=== PATIENT | female | born 1975 | race Hispanic/Latino ===

== ENCOUNTER 2018-09-13 17:32 | Emergency (ER) | payer OTHER ==
--- OUTSIDE RECORDS SUMMARY | 2018-09-13 17:33 | XMS REPORT ---
:1975 [facility] Errol Golden [address] [place] [id number] Care Team Providers Name Role Phone Unavailable Unavailable Unavailable Problems This patient has no known problems. Allergies, Adverse Reactions, Alerts This patient has no known allergies or adverse reactions. Medications This patient has no known medications.
[2018-09-13 18:09] LABS: Absolute Lymphocytes (CBC) 2.3 K/uL (0.7-4.9); Absolute Monocytes 0.5 K/uL (0.1-1.3); Absolute Neutrophil 4.8 K/uL (1.8-8.0); Basophils % 0.9 % (0-1.3); Eosinophils % 0.7 % (0-4.4); Hematocrit 36.4 % (36.0-45.0); Lymphocytes % 29.5 % (15.3-44.8); MPV 7.7 fL (7.6-11.3); Monocytes % 6.3 % (3.3-12.3); Protime INR 0.92; RBC Red Blood Cell Count 3.84 M/uL (3.86-4.86)
--- NOTE | 2018-09-13 18:21 | RAD REPORT ---
EXAM DESCRIPTION: Bird Single View09/13/2018 6:07 pm CLINICAL HISTORY: sob COMPARISON: none FINDINGS: The lungs appear clear of acute infiltrate. The heart is normal size IMPRESSION: No acute abnormalities displayed
[2018-09-13 18:24] LABS: ALT/SGPT 16 U/L (12-78); AST/SGOT 8 U/L (15-37); Albumin 3.5 g/dL (3.4-5.0); Alkaline Phosphatase 50 U/L (45-117); BUN Blood Urea Nitrogen 20 mg/dL (7-18); Bicarbonate 28 mmol/L (21-32); Bilirubin Direct < 0.1 mg/dL (0-0.2); Bilirubin Total 0.4 mg/dL (0.2-1.0); Glucose Level 95 mg/dL (74-106); Magnesium 1.9 mg/dL (1.8-2.4); NT PRO-BNP 50 pg/mL (<125); Potassium 3.5 mmol/L (3.5-5.1); Protein, Total 6.7 g/dL (6.4-8.2); Sodium Level 139 mmol/L (136-145); Troponin (Emerg Dept Use Only) < 0.02 ng/mL (0.0-0.045)
[2018-09-13 18:28] LABS: Barbiturates NEGATIVE (NEGATIVE); Benzodiazepines NEGATIVE (NEGATIVE); Cocaine NEGATIVE (NEGATIVE); METHAMPHETAM NEGATIVE (NEGATIVE); Methadone NEGATIVE (NEGATIVE); Opiates NEGATIVE (NEGATIVE); Phencyclidine NEGATIVE (NEGATIVE); THC Cannibis NEGATIVE (NEGATIVE)
--- NOTE | 2018-09-13 18:40 | RAD REPORT ---
EXAM DESCRIPTION: CT - Head Brain Wo Cont - 09/13/2018 6:23 pm CLINICAL HISTORY: Dizziness COMPARISON: None. TECHNIQUE: Computed axial tomography of the head was obtained. IV contrast was not requested. All CT scans are performed using dose optimization technique as appropriate and may include automated exposure control or mA/KV adjustment according to patient size. FINDINGS: An intracranial bleed is not seen . The ventricles are normal in caliber. No extra-axial fluid collection is noted. Fluid within the sinuses/ mastoids is not seen. IMPRESSION: No acute intracranial abnormality is seen. If patient's symptoms persist MRI of the bra in would be recommended.
[2018-09-13 19:28] LABS: Urine Blood NEGATIVE (NEG); Urine Glucose NEGATIVE (NEG); Urine Protein NEGATIVE (NEG); Urine pH 6.5 (5.0-7.0)
--- NOTE | 2018-09-13 20:21 | ER ---
Nurse's Notes 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 Transition of care: patient was not received from another setting of care. Onset of symptoms is unknown. Risk Assessment: Do you want to hurt yourself or someone else? Patient reports no desire to harm self or others. Initial Sepsis Screen: Does the patient meet any 2 criteria? No. Patient's initial sepsis screen is negative. Does the patient have a suspected source of infection? No. Patient's initial sepsis screen is negative. Care prior to arrival: IV initiated. 18 GA, in the right antecubital area, Glucose check: 103. 17:40 Method Of Arrival: EMS: [facility] bp 17:40 Acuity: SILVER 3 bp Triage Assessment: 17:42 General: Appears in no apparent distress. comfortable, Behavior is calm, cooperative, bp appropriate for age. Pain: Denies pain. 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 - Social history:: Smoking status: Patient/guardian denies using tobacco. - Ebola Screening: : Patient negative for fever greater than or equal to 101.5 degrees Fahrenheit, and additional compatible Ebola Virus Disease symptoms Patient denies exposure to infectious person Patient denies travel to an Ebola-affected area in the 21 days before illness onset No symptoms or risks identified at this time. Screenin:45 Abuse screen: Denies threats or abuse. Denies injuries from another. Nutritional bp screening: No deficits noted. Tuberculosis screening: No symptoms or risk factors identified. Fall Risk None identified. Assessment: 17:45 General: Appears in no apparent distress. comfortable, Behavior is calm, cooperative, bp appropriate for age. Pain: Denies pain. Neuro: Level of Consciousness is awake, alert, obeys commands, Oriented to person, place, time, situation, Appropriate for age. Cardiovascular: No deficits noted. Respiratory: Airway is patent Respiratory effort is even, unlabored, Respiratory pattern is regular, symmetrical. GI: No signs and/or symptoms were reported involving the gastrointestinal system. : No signs and/or symptoms were reported regarding the genitourinary system. EENT: No deficits noted. Derm: No deficits noted. Musculoskeletal: Circulation, motion, and sensation intact. Range of motion: intact in all extremities. 19:15 General: Appears in no apparent distress. comfortable, Behavior is calm, cooperative, tl2 appropriate for age. Pain: Denies pain. Neuro: Level of Consciousness is awake, alert, obeys commands, Oriented to person, place, time, situation. Neuro: Reports dizziness. Cardiovascular: No deficits noted. Respiratory: Airway is patent Respiratory effort is even, unlabored, Respiratory pattern is regular, symmetrical. GI: No signs and/or symptoms were reported involving the gastrointestinal system. : No signs and/or symptoms were reported regarding the genitourinary system. Derm: Skin is pink, warm \T\ dry. 20:16 Reassessment: Patient appears in no apparent distress at this time. Patient and/or tl2 family updated on plan of care and expected duration. Pain level reassessed. Patient is alert, oriented x 3, equal unlabored respirations, skin warm/dry/pink. PA spoke with pt about dispo, awaiting paperwork. 20:33 Reassessment: Patient appears in no apparent distress at this time. discharge rr5 instruction given and explained without complaints made. Vital Signs: 17:40 BP 118 / 73 Sitting; Pulse 64; Resp 16; Temp 98; Pulse Ox 100% ; Weight 65.77 kg; bp Height 4 ft. 10 in. (147.32 cm); 17:42 BP 133 / 79 Standing; Pulse 64; Resp 16; Pulse Ox 100% ; bp 19:30 BP 114 / 63; Pulse 67; Resp 18; Pulse Ox 100% on R/A; tl2 20:30 BP 114 / 63; Pulse 69; Resp 16; Pulse Ox 99% ; rr5 17:40 Body Mass Index 30.30 (65.77 kg, 147.32 cm) bp ED Course: 17:40 Patient arrived in ED. bp 17:41 Triage completed. bp 17:44 Arm band placed on. bp 17:45 Patient has correct armband on for positive identification. Placed in gown. Bed in low bp position. Call light in reach. Side rails up X2. 17:45 Maintain EMS IV. Dressing intact. Good blood return noted. Site clean \T\ dry. Gauge \T\ bp site: 18 GAUGE R AC. 17:[address] jg6 18:03 X-ray completed. Portable x-ray completed in exam room. Patient tolerated procedure ls3 well. 18:05 XRAY Chest (1 view) In Process Unspecified. EDMS 18:06 EKG done, by ultrasound technologist. dt2 18:09 Urine collected: clean catch specimen, cloudy, courtney colored. jb1 18:11 Urine Drug Screen Sent. jb1 18:14 Neftali Batista PA is PHCP. [facility] 18:14 Jose Man MD is Attending Physician. [facility] 18:16 Jose Ortiz, RN is Primary Nurse. bp 18:24 CT Head Brain wo Cont In Process Unspecified. EDMS 20:19 Chandrakant Aguilar MD is Referral Physician. jmm 20:34 No provider procedures requiring assistance completed. IV discontinued, intact, rr5 bleeding controlled, No redness/swelling at site. Pressure dressing applied. Administered Medications: No medications were administered Outcome: 20:20 Discharge ordered by . jmm 20:34 Discharged to home ambulatory. rr5 20:34 Condition: stable 20:34 Discharge instructions given to patient, Instructed on discharge instructions, follow up and referral plans. Demonstrated understanding of instructions, follow-up care. 20:35 Patient left the ED. rr5 Signatures: Dispatcher [employer] EDMS Luc eHrnández jb1 Neftali Batista PA PA jmm Knox, Taylor, RN RN tl2 Jose Ortiz, RN RN Malina Ornelas dt2 Awa Keane jg6 Azam Santacruz ls3 Wade Vyas, RN RN rr5
--- NOTE | 2018-09-13 20:21 | EDPHYS ---
Physician Documentation [facility] Name: Mariana Aquino Age: 42 yrs Sex: Female : 1975 Arrival Date: 09/13/2018 Time: 17:40 Bed 2 Private MD: ED Physician Jose Man HPI: 09/13 18:47 This 42 yrs old Female presents to ER via EMS with complaints of Dizziness. jmm 18:47 The patient has experienced near-syncope. Onset: The symptoms/episode began/occurred jmm acutely, at 16:30. Duration: The patient has had multiple episodes. This is a 42 year old female with no chronic medical conditions that presents to the ED with complaints of near syncope which occurred while at work. Patient states she became lightheaded and almost fainted. Patient states her hands became clammy. Patient denies chest pain, denies palpitations, denies shortness of breath. Denies sensation of dizziness, symptoms are not exacerbated by movement. Denies family history of sudden . . 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 - Social history:: Smoking status: Patient/guardian denies using tobacco. - Ebola Screening: : Patient negative for fever greater than or equal to 101.5 degrees Fahrenheit, and additional compatible Ebola Virus Disease symptoms Patient denies exposure to infectious person Patient denies travel to an Ebola-affected area in the 21 days before illness onset No symptoms or risks identified at this time. ROS: 18:47 Constitutional: Negative for fever, chills, and weight loss, Cardiovascular: Negative jmm for chest pain, palpitations, and edema, Respiratory: Negative for shortness of breath, cough, wheezing, and pleuritic chest pain. 18:47 Neuro: Positive for near syncope. 18:47 All other systems are negative. Exam: 18:47 Constitutional: This is a well developed, well nourished patient who is awake, alert, jmm and in no acute distress. Head/Face: atraumatic. Eyes: EOMI, no conjunctival erythema appreciated ENT: Moist Mucus Membranes Neck: Trachea midline, Supple Chest/axilla: Normal chest wall appearance and motion. Cardiovascular: Regular rate and rhythm. No edema appreciated Respiratory: Normal respirations, no respiratory distress appreciated Abdomen/GI: Non distended, soft Skin: General appearance color normal MS/ Extremity: Moves all extremities, no obvious deformities appreciated, no edema noted to the lower extremities 18:47 Neuro: Orientation: is normal, Mentation: is normal, Memory: is normal. 18:47 Psych: Behavior/mood is pleasant, cooperative. 18:49 Neuro: Cerebellar function: normal finger to nose testing, heel to sunshine testing is [facility] normal. Vital Signs: 17:40 BP 118 / 73 Sitting; Pulse 64; Resp 16; Temp 98; Pulse Ox 100% ; Weight 65.77 kg; bp Height 4 ft. 10 in. (147.32 cm); 17:42 BP 133 / 79 Standing; Pulse 64; Resp 16; Pulse Ox 100% ; bp 19:30 BP 114 / 63; Pulse 67; Resp 18; Pulse Ox 100% on R/A; tl2 20:30 BP 114 / 63; Pulse 69; Resp 16; Pulse Ox 99% ; rr5 17:40 Body Mass Index 30.30 (65.77 kg, 147.32 cm) bp MDM: 18:18 Patient medically screened. [facility] 20:19 Data reviewed: vital signs, nurses notes. Counseling: I had a detailed discussion with rigoberto the patient and/or guardian regarding: the historical points, exam findings, and any diagnostic results supporting the discharge/admit diagnosis, lab results, radiology results, the need for outpatient follow up, to return to the emergency department if symptoms worsen or persist or if there are any questions or concerns that arise at home. ED course: [place] syncope rules negative. Patient is advised to follow up with cardiology for further evaluation. Patient is otherwise given strict return precautions. . 09/13 17:45 Order name: Basic Metabolic Panel; Complete Time: 18:27 bp 09/13 17:45 Order name: CBC with Diff; Complete Time: 18:19 bp 09/13 17:45 Order name: LFT's; Complete Time: 18:27 bp 09/13 17:45 Order name: Magnesium; Complete Time: 18:27 bp 09/13 17:45 Order name: NT PRO-BNP; Complete Time: 18:27 bp 09/13 17:45 Order name: PT-INR; Complete Time: 18:19 bp 09/13 17:45 Order name: Troponin (emerg Dept Use Only); Complete Time: 18:27 bp 09/13 17:45 Order name: XRAY Chest (1 view); Complete Time: 18:27 bp 09/13 17:45 Order name: EKG; Complete Time: 17:46 bp 09/13 17:45 Order name: Cardiac monitoring; Complete Time: 17:47 bp 09/13 17:45 Order name: CT Head Brain wo Cont; Complete Time: 18:44 bp 09/13 17:45 Order name: Urine Drug Screen; Complete Time: 18:34 bp 09/13 18:12 Order name: Urine Dipstick--Ancillary (enter results); Complete Time: 19:33 em1 09/13 18:12 Order name: Urine --Ancillary (enter results); Complete Time: 19:33 em1 09/13 17:45 Order name: EKG - Nurse/Tech; Complete Time: 18:01 bp 09/13 17:45 Order name: IV Saline Lock; Complete Time: 17:47 bp 09/13 17:45 Order name: Labs collected and sent; Complete Time: 18:03 bp 09/13 17:45 Order name: O2 Per Protocol; Complete Time: 17:47 bp 09/13 17:45 Order name: O2 Sat Monitoring; Complete Time: 17:46 bp 09/13 17:45 Order name: Urine Dipstick-Ancillary (obtain specimen); Complete Time: 18:07 bp 09/13 17:45 Order name: Urine Test (obtain specimen); Complete Time: 18:07 bp 09/13 17:45 Order name: Orthostatic Blood Pressure; Complete Time: 17:46 bp Administered Medications: No medications were administered Disposition: 09/14 07:37 Co-signature as Attending Physician, Jose Man MD I agree with the assessment and kdr plan of care. Disposition: 09/13/18 20:20 Discharged to Home. Impression: Syncope and collapse. - Condition is Stable. - Discharge Instructions: Syncope. - Medication Reconciliation Form, Thank You Letter, Antibiotic Education, Prescription Opioid Use form. - Follow up: Chandrakant Aguilar MD; When: 1 - 2 days; Reason: Recheck today's complaints, Continuance of care, Re-evaluation by your physician. Signatures: Dispatcher [employer] EDJose Hernandez MD MD kdr Mickail, Joel, PA PA jmm Peltier, Brian, MILAN RN bp Wade Vyas, RN RN rr5 Corrections: (The following items were deleted from the chart) 09/13 20:35 20:20 09/13/2018 20:20 Discharged to Home. Impression: Syncope and collapse. Condition rr5 is Stable. Forms are Medication Reconciliation Form, Thank You Letter, Antibiotic Education, Prescription Opioid Use. Follow up: Chandrakant Aguilar; When: 1 - 2 days; Reason: Recheck today's complaints, Continuance of care, Re-evaluation by your physician. rigoberto
== END 2018-09-13 20:35 | disposition home or self-care (01) ==
LOC: ER 17:32
DX: R55 Syncope and collapse (principal)
CPT/HCPCS: 36415; 70450; 71045; 80048; 80076; 80307; 81003; 81025; 83735; 83880; 84484; 85025; 85610; 93005; 99284

== ENCOUNTER 2024-03-17 09:52 | Emergency (ER) | payer SELFPAY ==
[2024-03-17 10:55] LABS: Absolute Eosinophils 0.1 K/uL (0-0.5); Absolute Lymphocytes (CBC) 2.2 K/uL (0.7-4.9); Absolute Monocytes 0.6 K/uL (0.1-1.3); Absolute Neutrophil 2.7 K/uL (1.8-8.0); Basophils % 0.5 % (0-1.3); Hematocrit 36.5 % (36.0-45.0); Hemoglobin 11.6 g/dL (12.0-15.0); Lymphocytes % 39.4 % (15.3-44.8); MCH 26.2 pg (27.0-35.0); MCHC 31.8 g/dL (32.0-36.0); MCV 82.4 fL (80-100); MPV 7.1 fL (7.6-11.3); Monocytes % 10.3 % (3.3-12.3); Neutrophils % 48.8 % (41.7-73.7); Nucleated Red Blood Cells % 0.1 % (0-0); Platelets 263 thou/uL (152-406); RBC Red Blood Cell Count 4.42 M/uL (3.86-4.86); Red Cell Distribution Width 18.7 % (12.1-15.2)
[2024-03-17 10:56] LABS: Specific Gravity 1.017 (1.005-1.030)
[2024-03-17 10:59] LABS: Specific Gravity 1.018 (1.005-1.030); Sqamous Epithelial None Seen /HPF (None Seen); Urine Bacteria <20 /HPF (<20); Urine Bilirubin NEGATIVE (Negative); Urine Blood Trace (Negative); Urine Clarity Extremely Turbid (Clear); Urine Color Yellow (Yellow); Urine Culture Reflex Order NOT NEEDED; Urine Glucose NEGATIVE (Negative); Urine Ketones NEGATIVE (Negative); Urine Micro Reflex YN NO BILL MICROSCOPIC; Urine Nitrite NEGATIVE (Negative); Urine Protein NEGATIVE (Negative); Urine RBC <5 /HPF (None Seen); Urine Urobilinogen Normal (Normal); Urine WBC <5 /HPF (<5); Urine Yeast (Budding) Trace /HPF (None Seen); Urine pH 7.5 (5.0-7.0)
[2024-03-17 11:09] LABS: Albumin 3.1 g/dL (3.4-5.0); Albumin/Globulin Ratio 0.7 (1.1-1.8); Anion Gap 10.1 mEq/L (5.0-15.0); Bilirubin Total 0.3 mg/dL (0.2-1.0); Globulin 4.3 g/dL (2.3-3.5); Protein, Total 7.4 g/dL (6.4-8.2)
[2024-03-17 11:12] LABS: Potassium 4.1 mEq/L (3.5-5.1)
--- NOTE | 2024-03-17 11:50 | RAD REPORT ---
EXAM DESCRIPTION: CT - Abdomen Pelvis W Contrast - 03/17/2024 11:37 am CLINICAL HISTORY: right side abdomen pain COMPARISON: CT ABD PELVIS W CONTRAST dated 12/22/2008 TECHNIQUE: Thin cut axial CT imaging of the abdomen and pelvis was performed following intravenous a dministration of 100 mL Isovue 300. Multiplanar reformats were generated and reviewed. All CT scans are performed using dose optimization technique as appropriate and may include automated exposure control or mA/KV adjustment according to patient size. FINDINGS: No suspicious findings in the lung bases. The liver show subcentimeter hypoattenuating foci, well-circumscribed, may suggest small cysts, howev er are not well characterized. Adrenal glands, spleen, and pancreas show no suspicious findings. Gall bladder and biliary tree are also without suspicious finding. Left lower renal pole 3 mm nonobstructing calculus. Somewhat ill-defined focus of heterogeneous hypoe nhancement along the posterior right renal interpolar cortex, favored to represent focal pyelonephrit is, given some adjacent perinephric edema and fascial thickening. No hydronephrosis or suspicious yasmine al mass. No dilated bowel loops or bowel wall thickening. No free air, free fluid or inflammatory stranding. N o hernia, mass or bulky lymphadenopathy. Appendix is unremarkable. The urinary bladder is suboptimall y distended, without significant finding. No suspicious bony findings. IMPRESSION: Somewhat ill-defined focus of heterogeneous hypoenhancement along the right posterior re nal interpolar cortex, favored to represent focal pyelonephritis. Incidentally noted nonobstructing 3 mm left lower renal pole calculus. No evidence of obstruction.
--- NOTE | 2024-03-17 12:06 | EDPHYS ---
Physician Documentation [facility] Name: Mariana Aquino Age: 48 yrs Sex: Female : 1975 Arrival Date: 03/17/2024 Time: 09:52 Bed 8 Private MD: ELVIA Physician Neil Mcghee HPI: 03/17 10:25 This 48 yrs old Female presents to ER via Ambulatory with complaints of cp Abdominal Pain. 10:25 The patient presents with abdominal pain. cp 10:25 Onset: The symptoms/episode began/occurred 1 week(s) ago. cp 10:25 The symptoms radiate to Associated signs and symptoms: Pertinent negatives: blood in cp stools, chest pain, constipation, diarrhea, fever, shortness of breath, vomiting. The symptoms are described as waxing/waning. Historical: - Allergies: 10:12 No Known Allergies; ll1 - Immunization history:: Adult Immunizations up to date. - Infectious Disease History:: Denies. - Social history:: Smoking status: Patient denies any tobacco usage or history of. ROS: 10:30 Constitutional: Negative for body aches, chills, fever, poor PO intake, cp 10:30 Eyes: Negative for injury, pain, redness, and discharge, cp 10:30 ENT: Negative for drainage from ear(s), ear pain, sore throat, difficulty swallowing, difficulty handling secretions, 10:30 Cardiovascular: Negative for chest pain, palpitations, 10:30 Respiratory: Negative for cough, shortness of breath, wheezing, 10:30 Abdomen/GI: Positive for abdominal pain, nausea, Negative for vomiting, diarrhea, constipation, black/tarry stool, rectal bleeding, 10:30 Neuro: Negative for headache, weakness, 10:30 All other systems are negative, Exam: 10:35 Head/Face: Normocephalic, atraumatic. cp 10:35 Constitutional: The patient appears in no acute distress, alert, awake, non-toxic, well developed, well nourished, 10:35 Eyes: Periorbital structures: appear normal, Conjunctiva: normal, no exudate, no injection, Sclera: no appreciated abnormality, Lids and lashes: appear normal, bilaterally, 10:35 ENT: External ear(s): are unremarkable, Nose: is normal, Mouth: Lips: moist, Oral mucosa: moist, Posterior pharynx: Airway: no evidence of obstruction, patent, 10:35 Chest/axilla: Inspection: normal, 10:35 Cardiovascular: Rate: normal, Rhythm: regular, 10:35 Respiratory: the patient does not display signs of respiratory distress, Respirations: normal, no use of accessory muscles, no retractions, labored breathing, is not present, Breath sounds: are clear throughout, no decreased breath sounds, no stridor, no wheezing, 10:35 Abdomen/GI: Inspection: abdomen appears normal, Bowel sounds: active, all quadrants, Palpation: soft, in all quadrants, mild abdominal tenderness, in the right upper quadrant, rebound tenderness, is not appreciated, involuntary guarding, is not appreciated, 10:35 Back: pain, that is mild, of the mid back area, ROM is normal, 10:35 Skin: no rash present. 10:35 Neuro: Orientation: to person, place \T\ time. Mentation: is normal, Motor: moves all fours, strength is normal, Vital Signs: 10:12 BP 112 / 66; Pulse 60; Resp 16; Temp 97.1; Pulse Ox 100% ; Weight 58.97 kg; Height 4 ll1 ft. 10 in. ; Pain 5/10; 11:30 BP 118 / 78; Pulse 62; Resp 18; Pulse Ox 98% on R/A; ph 13:00 BP 122 / 72; Pulse 63; Resp 18; Temp 97.5; Pulse Ox 98% on R/A; ph 10:12 Body Mass Index 27.17 (58.97 kg, 147.32 cm) ll1 10:12 Pain Scale: Adult ll1 MDM: 10:15 Patient medically screened. cp 11:00 Differential diagnosis: appendicitis, cholecystitis, Cholelithiasis, non-specific abd cp pain, Pyelonephritis, Ureterolithiasis, urinary tract infection. 12:04 Data reviewed: vital signs, nurses notes, lab test result(s), radiologic studies, CT cp scan, and as a result, I will discharge patient. Independent interpretation of the following test(s) in the Emergency Department EKG: See my EKG interpretation above. Counseling: I had a detailed discussion with the patient and/or guardian regarding the historical points, exam findings, and any diagnostic results supporting the discharge/admit diagnosis, lab results, radiology results, the need for outpatient follow up, a family practitioner, to return to the emergency department if symptoms worsen or persist or if there are any questions or concerns that arise at home. 03/17 10:16 Order name: Urinalysis W/Microscopic; Complete Time: 11:28 03/17 11:28 Interpretation: Normal except: [facility] Extremely Turbid; UBLD Trace; UPH 7.5; BYST Trace. 03/17 10:16 Order name: Test, Urine; Complete Time: 11:28 03/17 10:28 Order name: CBC with Diff; Complete Time: 11:28 03/17 11:29 Interpretation: Normal except: HGB 11.6; MCH 26.2; MCHC 31.8; RDW 18.7; MPV 7.1. 03/17 10:28 Order name: CMP; Complete Time: 11:28 03/17 11:30 Interpretation: ALB 3.1; GLOB 4.3; A/G 0.7; Reviewed. 03/17 10:28 Order name: Lipase; Complete Time: 11:28 03/17 11:32 Interpretation: Reviewed. 03/17 10:28 Order name: CT Abd/Pelvis - IV Contrast Only; Complete Time: 11:51 03/17 11:52 Interpretation: Report reviewed. 03/17 10:28 Order name: IV Saline Lock; Complete Time: 11:36 03/17 10:28 Order name: Labs collected and sent; Complete Time: 11:36 cp Administered Medications: 12:53 Drug: NS 0.9% IV 1000 ml IV at 1 bolus Per protocol; 1000 mL bolus Route: IV; Rate: 1 ph bolus; Site: right antecubital; 14:00 Follow up: Response: No adverse reaction; IV Status: Completed infusion; IV Intake: ph 1000ml 12:54 Drug: Rocephin IV 1 grams IV at calculated rate once; Given slow IV push per pharmacy ph instructions Route: IV; Rate: calculated rate; Site: right antecubital; 13:45 Follow up: Response: No adverse reaction; IV Status: Completed infusion ph 13:02 Not Given (Patient Refused): [id number] mg IVP once; if test negative ph Disposition Summary: 03/17/24 12:05 Discharge Ordered Notes: Location: Home cp Problem: new cp Symptoms: have improved cp Condition: Stable cp Diagnosis - Pyelonephritis acute cp Followup: cp - With: Private Physician - When: 2 - 3 days - Reason: Recheck today's complaints Discharge Instructions: - Discharge Summary Sheet cp - Pyelonephritis, Adult cp Forms: - Medication Reconciliation Form cp - Antibiotic Education cp - Prescription Opioid Use cp - Patient Portal Instructions cp - Leadership Thank You Letter cp Prescriptions: - Zofran 4 mg Oral Tablet - take 1 tablet ORAL route every 12 hours As needed; 20 tablet; Refills: 0, cp Product Selection Permitted - cefpodoxime 200 mg Oral tablet - take 1 tablet ORAL route every 12 hours with food; 20 tablet; Refills: 0, cp Product Selection Permitted Addendum: 03/24/2024 15:38 Co-signature as Attending Physician, Neil Mcghee MD I agree with the assessment and c nino plan of care. Signatures: Dispatcher [employer] EDNE Neil Mcghee MD MD cha Hall, Patricia, RN RN Neil Ramires PA PA Felicitas Burleson RN RN ll1 Corrections: (The following items were deleted from the chart) 03/17 10:17 10:17 Urinalysis W/Microscopic+U.LAB.BRZ ordered. EDNE EDMS 10:17 10:17 Test, Urine+UC.LAB.BRZ ordered. EDMS EDMS 10:28 10:28 CBC+H.LAB.BRZ ordered. EDMS EDMS 10:28 10:28 COMPREHENSIVE METABOLIC PANEL+C.LAB.BRZ ordered. EDMS EDMS 10:28 10:28 LIPASE+C.LAB.BRZ ordered. EDMS EDMS 10:29 10:29 Abdomen Pelvis W Con+CT.RAD.BRZ ordered. EDMS EDMS 12:03/16 10:35 Constitutional: The patient appears in no acute distress, alert, awake, cp non-toxic, well developed, well nourished, cp 03/17 12:03/16 10:35 Head/Face: Normocephalic, atraumatic. cp cp 03/17 12:03/16 10:35 Eyes: Periorbital structures: appear normal, Conjunctiva: normal, no cp exudate, no injection, Sclera: no appreciated abnormality, Lids and lashes: appear normal, bilaterally, cp 03/17 12:03/16 10:35 ENT: External ear(s): are unremarkable, Nose: is normal, Mouth: Lips: cp moist, Oral mucosa: moist, Posterior pharynx: Airway: no evidence of obstruction, patent, cp 03/17 12:03/16 10:35 Chest/axilla: Inspection: normal, cp cp 03/17 12:03/16 10:35 Cardiovascular: Rate: normal, Rhythm: regular, cp cp 03/17 12:03/16 10:35 Respiratory: the patient does not display signs of respiratory distress, cp Respirations: normal, no use of accessory muscles, no retractions, labored breathing, is not present, Breath sounds: are clear throughout, no decreased breath sounds, no stridor, no wheezing, cp 03/17 12:03/16 10:35 Abdomen/GI: Inspection: abdomen appears normal, Bowel sounds: active, all cp quadrants, Palpation: soft, in all quadrants, mild abdominal tenderness, in the right upper quadrant, rebound tenderness, is not appreciated, involuntary guarding, is not appreciated, cp 03/17 12:03/16 10:35 Back: pain, that is mild, of the mid back area, ROM is normal, cp cp 03/17 12:03/16 10:35 Skin: no rash present. cp cp 03/17 12:03/16 10:35 Neuro: Orientation: to person, place \T\ time. Mentation: is normal, Motor: cp moves all fours, strength is normal, cp
--- NOTE | 2024-03-17 12:06 | ER ---
Nurse's Notes [facility] Name: Mariana Aquino Age: 48 yrs Sex: Female : 1975 Arrival Date: 03/17/2024 Time: 09:52 Bed 8 Private MD: Diagnosis: Pyelonephritis acute Presentation: 03/17 10:12 Chief complaint: Patient states: R sided abdominal pain for 1 week. Some nausea. ll1 Unknown fever. Coronavirus screen: Client denies travel out of the [place] in the last 14 days. fatigue, fever, nausea, Client presents with at least one sign or symptom that may indicate coronavirus-19. Standard/surgical mask placed on the client. Ebola Screen: Patient denies travel to an Ebola-affected area in the 21 days before illness onset. Initial Sepsis Screen: Does the patient meet any 2 criteria? No. Patient's initial sepsis screen is negative. Does the patient have a suspected source of infection? No. Patient's initial sepsis screen is negative. Risk Assessment: Do you want to hurt yourself or someone else? Patient reports no desire to harm self or others. Onset of symptoms was March 10, 2024. 10:12 Method Of Arrival: Ambulatory ll1 10:12 Acuity: SILVER 3 ll1 Historical: - Allergies: 10:12 No Known Allergies; ll1 - Immunization history:: Adult Immunizations up to date. - Infectious Disease History:: Denies. - Social history:: Smoking status: Patient denies any tobacco usage or history of. Screenin:07 [facility] ED Fall Risk Assessment (Adult) History of falling in the last 3 months, ph including since admission No falls in past 3 months (0 pts) Confusion or Disorientation No (0 pts) Intoxicated or Sedated No (0 pts) Impaired Gait No (0 pts) Mobility Assist Device Used No (0 pt) Altered Elimination No (0 pt) Score/Fall Risk Level 0 - 2 = Low Risk Oriented to surroundings, Maintained a safe environment, Hourly rounding (assess needs \T\ fall precautionary measures) done. Abuse screen: Denies threats or abuse. Denies injuries from another. Nutritional screening: No deficits noted. Tuberculosis screening: No symptoms or risk factors identified. Assessment: 11:06 General: Appears in no apparent distress. Behavior is calm, cooperative, appropriate ph for age. Pain: Complains of pain in right lower quadrant. Neuro: Level of Consciousness is awake, alert, obeys commands, Oriented to person, place, time, situation. Cardiovascular: Capillary refill < 3 seconds in bilateral fingers Patient's skin is warm and dry. Respiratory: Airway is patent Respiratory effort is even, unlabored, Respiratory pattern is regular, symmetrical. GI: Abdomen is non-distended, Bowel sounds present X 4 quads. Abd is soft X 4 quads Reports lower abdominal pain, nausea. Derm: Skin is pink, warm \T\ dry. Musculoskeletal: Circulation, motion, and sensation intact. Range of motion: intact in all extremities. Vital Signs: 10:12 BP 112 / 66; Pulse 60; Resp 16; Temp 97.1; Pulse Ox 100% ; Weight 58.97 kg; Height 4 ll1 ft. 10 in. ; Pain 5/10; 11:30 BP 118 / 78; Pulse 62; Resp 18; Pulse Ox 98% on R/A; ph 13:00 BP 122 / 72; Pulse 63; Resp 18; Temp 97.5; Pulse Ox 98% on R/A; ph 10:12 Body Mass Index 27.17 (58.97 kg, 147.32 cm) ll1 10:12 Pain Scale: Adult ll1 ED Course: 10:01 Patient arrived in ED. mr 10:03 Neil Ramires PA is PHCP. cp 10:03 Neil Mcghee MD is Attending Physician. cp 10:12 Arm band placed on Patient placed in an exam room, on a stretcher. ll1 10:14 Triage completed. ll1 10:15 Jaimie Harrison, RN is Primary Nurse. ph 10:40 Initial lab(s) drawn, by ma, sent to lab. Urine collected: clean catch specimen, ph cloudy. Inserted saline lock: 20 gauge in right antecubital area, using aseptic technique. Blood collected. Flushed with 10 mL NS. 11:07 Patient has correct armband on for positive identification. Bed in low position. Call ph light in reach. Side rails up X 1. Pulse ox on. NIBP on. 11:39 CT Abd/Pelvis - IV Contrast Only In Process Unspecified. EDMS 13:48 No provider procedures requiring assistance completed. IV discontinued, intact, ph bleeding controlled, No redness/swelling at site. Pressure dressing applied. Administered Medications: 12:53 Drug: NS 0.9% IV 1000 ml IV at 1 bolus Per protocol; 1000 mL bolus Route: IV; Rate: 1 ph bolus; Site: right antecubital; 14:00 Follow up: Response: No adverse reaction; IV Status: Completed infusion; IV Intake: ph 1000ml 12:54 Drug: Rocephin IV 1 grams IV at calculated rate once; Given slow IV push per pharmacy ph instructions Route: IV; Rate: calculated rate; Site: right antecubital; 13:45 Follow up: Response: No adverse reaction; IV Status: Completed infusion ph 13:02 Not Given (Patient Refused): mg IVP once; if test negative ph Medication: 11:07 VIS not applicable for this client. ph Intake: 14:00 IV: 1000ml; Total: 1000ml. ph Outcome: 12:05 Discharge ordered by . cp 13:48 Patient left the ED. ph 13:48 Discharged to home ambulatory, ph 13:48 Condition: good 13:48 Discharge instructions given to patient, Instructed on discharge instructions, follow up and referral plans. medication usage, Demonstrated understanding of instructions, follow-up care, medications, Prescriptions given X 2, Signatures: Dispatcher [employer] EDNinfa Todd, Inocente Brower mr Jaimie Harrison RN RN ph Neil Ramires PA PA cp Lewis, Lynsay, RN RN ll1
[2024-03-17] MEDS ORDERED: NA CHLORIDE 0.9% 500 ML ONE (12:47)
[2024-03-17] MEDS ORDERED: KETOROLAC 30 MG/ML INJ ONE (12:47)
[2024-03-17] MEDS ORDERED: CEFTRIAXONE 1000 MG/VIAL ONE (12:47)
[2024-03-17 14:06] VITALS: BP 112/66; TEMP 97.1; O2SAT 100
== END 2024-03-17 13:48 | disposition home or self-care (01) ==
LOC: ER 09:52
DX: N10 Acute pyelonephritis (principal)
CPT/HCPCS: 36415; 74177; 80053; 81001; 81025; 83690; 85025; 96365; 99284; J0696; J7040; Q9967